=== PATIENT | male | born 1960 ===

== ENCOUNTER 2025-06-12 07:00 | Day surgery (SDC) | payer OTHER ==
[2025-05-27 10:53] LABS: URINE APPEARANCE Clear; URINE BILIRRUBIN Negative (NEGATIVE); URINE BLOOD Negative; URINE COLOR Yellow; URINE GLUCOSE Negative (NEGATIVE); URINE KETONE Negative (NEGATIVE); URINE LEUKOCYTE Negative; URINE NITRATE Negative; URINE PROTEIN Negative (NEGATIVE); URINE UROBILINOGEN 0.2 E.U./dl
[2025-05-27 10:57] LABS: URINE WBC 2.6 uL (0.0-23.2)
[2025-05-27 11:04] LABS: BASO % 0.7 % (0.1-1.2); EOS # 0.12 (0.04-0.54); EOS % 2.7 % (0.7-7.0); LYMPH # 1.38 (1.18-3.74); LYMPH % 31.3 % (19.3-53.1); MEAN PLATELET VOLUME 10.20 fl (9.4-12.4); MONO # 0.48 (0.24-0.82); MONO % 10.9 % (4.7-12.5); NEUT # 2.39 (1.56-6.13); NEUT % 54.2 % (34.0-71.1); RED CELL DISTRIBUTION WIDTH 13.2 % (11.6-14.4)
[2025-05-27 11:23] LABS: INR < 0.93
[2025-05-27 11:24] LABS: URINE BACTERIA 3.5 uL (0.0-1933); URINE CAST 0.00 uL (0.0-1.40); URINE EPITHELIAL CELLS 0.4 uL (0.0-38.8); URINE RBC 1.1 uL (0.0-20.8)
[2025-05-27 11:34] VITALS: BP 130/71
[2025-05-27 12:30] LABS: ALT/SGPT 32.0 U/L (12-78); AST/SGOT 28.0 U/L (15-37); BILIRUBIN TOTAL 0.51 mg/dL (0.3-1.2); BUN CREA RATIO 15.0 (7.0-25.0); CREATININE SERUM 1.11 mg/dL (0.70-1.30); GFR 66.91; GLOBULINA 3.5 G/DL (2.4-3.5); GLUCOSE FASTING 94.0 mg/dL (65-100); OSMOLALITY SERUM 286.0 MOSM/KG (275-295)
[~2025-06-12] VITALS: Ht 167.6 cm; Wt 67.1 kg
[2025-06-12] MEDS ORDERED: METRONIDAZOLE/SODIUM CHLORIDE 500 MG/100 ML PIGGYBACK IV ONE (07:51)
[2025-06-12] MEDS ORDERED: CEFTRIAXONE SODIUM 2,000 MG VIAL ONE (07:51)
[2025-06-12] MEDS ORDERED: DIBUCAINE 30 GM TUBE ONE (09:09)
[2025-06-12] MEDS ORDERED: POVIDONE-IODINE 118 ML BOTT TOP ONE (09:09)
[2025-06-12] MEDS ORDERED: HEMOSTATIC MATRIX 1 KIT KIT TOP ONE (09:09)
[2025-06-12] MEDS ORDERED: TRAM1TAB98 PO (09:49)
[2025-06-12] MEDS ORDERED: COLACE100 MG PO (09:49)
== END 2025-06-12 14:25 | disposition home or self-care (01) ==
LOC: CIR.AMB 07:00
PROVIDERS: ATTEND Surgery
DX: K60.321 Anal fistula, complex, initial (principal); K62.89 Other specified diseases of anus and rectum; K62.5 Hemorrhage of anus and rectum; Z91.013 Allergy to seafood; Z91.041 Radiographic dye allergy status